=== PATIENT | male | born 1955 | race Caucasian/White ===

== ENCOUNTER 2024-08-11 13:52 | Emergency (ER) | payer MEDICARE, SELFPAY ==
[2024-08-11 13:54] VITALS: BP 147/92; PULSE 82; RESP 16; TEMP 36.7; O2SAT 98
[2024-08-11 13:59] VITALS: BP 147/92; PULSE 82; RESP 16; TEMP 36.7; O2SAT 98
--- NOTE | 2024-08-11 14:45 | RT.EKG_ITS ---
APPROVED REPORT Exam: Resting ECG Reason for Exam: abd pain Patient Location: E HR:62 bpm ECG Measurements Heart Rate 62 AXIS RI 162 P 75 QRSd 90 QRS 60 QT 385 T 54 QTc 392 Conclusion Sinus rhythm 62 normal axis no stemi
--- NOTE | 2024-08-11 14:58 | DI.CT_ITS ---
Exam(s) CT ABDOMEN PELVIS W EXAM: CT ABDOMEN PELVIS W CLINICAL HISTORY: abd pain TECHNIQUE: Imaging Protocol: Axial computed tomography images with coronal and sagittal reformatted images were created and reviewed. CONTRAST MATERIAL: Intravenous: Omnipaque 350 Contrast volume:75 mL Oral: No COMPARISON: No exams were available for comparison FINDINGS: ABDOMEN: Lung Bases: Coronary artery calcifications are present. Liver: Normal density. No measurable mass. Portal, Superior Mesenteric, and Splenic Veins: Unremarkable. Gallbladder and Biliary Tract: No radiodense calculus or dilation. Pancreas: Normal density, no abnormal calcifications or inflammatory process. Spleen: Normal. Adrenals: No masses seen. Kidneys: Normal size, contour and axis. No radiodense stones or obstructive uropathy. No masses seen. Abdominal Aorta: Abdominal portion non-dilated. Atherosclerotic calcification is present. Bowel: There are diverticula seen in the sigmoid colon. There is moderate wall thickening seen beginning in the distal transverse colon and extending to the proximal sigmoid colon. Pericolonic inflammation is seen. There are few scattered diverticuli within the inflamed bowel. Acute diverticulitis versus infectious/inflammatory colitis. There is no evidence of bowel obstruction. There is a large amount of stool in the proximal colon. Appendix is unremarkable. Peritoneal Cavity: There is a small amount of fluid in the left pericolic gutter. No focal fluid collection is seen to suggest an abscess. No free air. Lymph Nodes: Within normal limits. Bones: Within normal limits for the patient's age. The patient has a left total hip arthroplasty. Soft Tissues: There is a fluid collection adjacent to the greater trochanter of the left femur. It measures 5.9 cm transverse by 1.7 cm AP x 13.5 cm craniocaudad. (Series 8, image 104 and series 4, image 39). There is a thin enhancing wall. There is mild infiltration of the surrounding soft tissues. PELVIS: Bladder: Symmetric distention, no gross wall thickening. Reproductive Organs: Unremarkable as visualized. Lymph Nodes: Within normal limits. Bones: Within normal limits for the patient's age. IMPRESSION: 1. Moderate wall thickening from the distal transverse colon through the proximal sigmoid colon. There are associated diverticula and this may represent acute diverticulitis, however an infectious or inflammatory colitis should also be considered. Mild pericolonic inflammation and a small amount of free fluid is seen in the left pericolic gutter. 2. 5.9 x 1.7 x 13.5 cm focal fluid collection adjacent to the right greater trochanter. There is a thin enhancing wall and mild infiltration of the surrounding soft tissues. Abscess versus bursitis. RADIATION DOSE DELIVERED: 386.29mGy.cm Total DLP DATA REPOSITORY: All CT scans at this facility are submitted to the National Radiology Data Registry (NRDR) Dose Index Registry (DIR) with the [employer] ([employer]). RADIATION OPTIMIZATION: All CT scans at this facility use at least one of these dose optimization techniques: automated exposure control; mA and/or kV adjustment per patient size (includes targeted exams where dose is matched to clinical indication); or iterative reconstruction.
[2024-08-11 15:08] LABS: Abs Immature Grans 0.03 10^3/uL (0.0-0.06); Absolute Basophil Count 0.03 10^3/uL (0.0-0.2); Absolute Eosinophil Count 0.04 10^3/uL (0.0-0.7); Absolute Lymphocyte Count 0.82 10^3/uL (1.2-3.4); Absolute Monocyte Count 0.68 10^3/uL (0.1-0.8); Absolute Neutrophil Count 8.91 10^3/uL (1.2-6.7); Basophils % 0.3 %; Eosinophils % 0.4 %; HCT 44.7 % (40.0-50.0); HGB 14.8 g/dL (13.5-17.5); Immature Grans % 0.3 %; Lymphocytes % 7.8 %; MCH 31.4 pg (27.0-33.0); MCHC 33.1 % (32.0-36.0); MCV 95 fL (80-95); MPV 9.4 fL (8.0-11.0); Monocytes % 6.5 %; Neutrophils % 84.7 %; Platelet Count 252 10^3/uL (130-400); RBC 4.71 10^6/uL (4.36-5.78); RDW 13.2 % (11.8-14.1); RDW-SD 46.2 fL; WBC 10.51 10^3/uL (4.4-10.8)
[2024-08-11] MEDS: Ondansetron 4 MG/2 ML VIAL IVP (15:21)
[2024-08-11] MEDS: Normal Saline 1,000 ML 1000 ML IV (15:22)
[2024-08-11 15:24] LABS: ALT 31 U/L (16-63); AST 19 U/L (15-37); Alkaline Phosphatase 79 U/L (46-116); Anion Gap 9.1 mmol/L (3-11); BUN 24 mg/dL (7-18); Bilirubin, Total 0.6 mg/dL (0.2-1.0); CO2 27.9 mmol/L (21.0-32.0); CREATININE 1.2 mg/dL (0.70-1.30); Calcium 9.5 mg/dL (8.5-10.1); Chloride 102 mmol/L (98-107); Estimated GFR 64.65 (mL/min/1.73m2); Glucose 115 mg/dL (74-106); Lipase 26 U/L (<78); Magnesium 1.9 mg/dL (1.8-2.4); Potassium 4.2 mmol/L (3.5-5.1); Sodium 139 mmol/L (136-145); Total Protein 7.5 g/dL (6.4-8.2)
[2024-08-11 15:52] VITALS: BP 138/88; PULSE 68; RESP 18; O2SAT 99
[2024-08-11] MEDS: Omnipaque 350 MG/ML 100 ML BTL 75 ML IJ (16:11)
[2024-08-11] MEDS: Normal Saline - Diluent 50 ML VIAL IJ (16:11)
[2024-08-11 17:22] VITALS: BP 143/93; PULSE 66; RESP 16; O2SAT 97
--- NOTE | 2024-08-11 18:26 | ED.GENADUL_ITS ---
Discharge Plan Disposition Patient Disposition: Home Condition: Stable Discharge Details Clinical Impression: Colitis, Abdominal pain, Diarrhea Primary Care Provider: Andrei Israel ED Provider: Donna Garcia Home Meds and New Rx's Prescriptions: New amoxicillin-pot clavulanate 875-125 mg tablet 1 tab PO BID 7 Days Qty: 14 0RF ondansetron 4 mg tablet,disintegrating 4 mg PO Q6H PRN (Reason: nausea and vomiting) Qty: 30 0RF No Action lisinopril 20 mg tablet 20 mg PO DAILY bupropion HCl 300 mg tablet extended release 24 hr 300 mg PO DAILY Discharge Instructions Instructions: Colitis (DC) Additional Instructions: * Start the antibiotic as prescribed. * Start the nausea medication as needed * adhere to Clear liquid diet For the next week and advance slowly as you tolerate * return to the emergency department with fever, severe pain, not tolerating medication or if you feel like your symptoms are worsening * please follow up with general surgery in 6-8 weeks for colonoscopy after symptoms have resolved Discharge Data Discharge Date/Time-TO BE ENTERED AT DEPARTURE: 08/11/24 17:22 HPI General Date/Time Provider Initiated Documentation: 08/11/24 14:32 . Limitations to Documentation: no limitations . Information obtained by: patient . HPI Narrative: 69-year-old gentleman with significant past medical history presents for evaluation of of generalized abdominal pain and diarrhea. symptoms started last night. feels like it might be related to food he ate. diarrhea is pink, but says that it looks like the fruits he was eating. reports nausea, no vomiting or fever. reports he had diverticulosis on last colonoscopy. no sick contacts. Related Data Home Medications ?Medication ?Instructions ?Recorded ?Confirmed amoxicillin 875 mg-potassium 1 tab PO BID 7 days #14 t abs 08/11/24 clavulanate 125 mg tablet bupropion HCl 300 mg 24 hr tablet, 300 mg PO DAILY 08/11/24 extended release lisinopril 20 mg tablet 20 mg PO DAILY 08/11/2407/18 ondansetron 4 mg disintegrating 4 mg PO Q6H PRN nausea and 08/11/24 tablet vomiting #30 tabs Previous Rx's ?Medication ?Instructions ?Recorded amoxicillin 875 mg-potassium 1 tab PO BID 7 days #14 t abs 08/11/24 clavulanate 125 mg tablet ondansetron 4 mg disintegrating 4 mg PO Q6H PRN nausea and 08/11/24 tablet vomiting #30 tabs Allergies Allergy/AdvReac Type Severity Reaction Status Date / Time beesting Allergy Severe Anaphylaxsi Uncoded 08/11/24 13:59 s shellfish Allergy Unknown Hives Uncoded 08/11/24 13:59 General Stated Complaint: Abd Prob JESIKA: 3 Exam Narrative Exam Narrative: Review of Systems: All systems reviewed & are unremarkable except as noted in HPI and below Well-developed, no acute distress NCAT PERRL, normal conjunctiva RRR, no murmur Unlabored respiratory effort, CTAB Nondistended abdomen , mild lower tenderness no focal gaurding No rashes or lesions. no focal neurologic deficits Course Vital Signs Vital signs: Vital Signs Temperature 36.7 C 08/11/24 13:54 Pulse 82 08/11/24 13:54 Respiratory Rate 16 08/11/24 13:54 Blood Pressure 147/92 H 08/11/24 13:54 Pulse Oximetry 98 08/11/24 13:54 Temperature 36.7 C 08/11/24 13:59 Pulse 66 08/11/24 17:22 Respiratory Rate 16 08/11/24 17:22 Blood Pressure 143/93 H 08/11/24 17:22 Blood Pressure Mean 104 08/11/24 15:52 Pulse Oximetry 97 08/11/24 17:22 Oxygen Delivery Method Room Air 08/11/24 15:52 Oxygen Flow Rate 0 08/11/24 15:52 Pain Level 5 08/11/24 13:59 Lab/Test Results Lab/Test Results: Laboratory Tests Range/Units 08/11/24 14:53 WBC (4.4-10.8) 10^3/uL 10.51 RBC (4.36-5.78) 10^6/uL 4.71 Hgb (13.5-17.5) g/dL 14.8 Hct (40.0-50.0) % 44.7 MCV (80-95) fL 95 MCH (27.0-33.0) pg 31.4 MCHC (32.0-36.0) % 33.1 RDW (11.8-14.1) % 13.2 Plt Count (130-400) 10^3/uL 252 MPV (8.0-11.0) fL 9.4 Immature Gran % % 0.3 Neutrophils % % 84.7 Lymphocytes % % 7.8 Monocytes % % 6.5 Eosinophils % % 0.4 Basophils % % 0.3 Nucleated RBC % (0.0-0.3) % 0.0 Absolute Neutrophils (1.2-6.7) 10^3/uL 8.91 H Absolute Lymphocytes (1.2-3.4) 10^3/uL 0.82 L Absolute Monocytes (0.1-0.8) 10^3/uL 0.68 Absolute Eosinophils (0.0-0.7) 10^3/uL 0.04 Absolute Basophils (0.0-0.2) 10^3/uL 0.03 Sodium (136-145) mmol/L 139 Potassium (3.5-5.1) mmol/L 4.2 Chloride (98-107) mmol/L 102 Carbon Dioxide (21.0-32.0) mmol/L 27.9 Anion Gap (3-11) mmol/L 9.1 BUN (7-18) mg/dL 24 H Creatinine (0.70-1.30) mg/dL 1.2 Est GFR (CKD-EPI 2020) (mL/min/1.73m2) 64.65 Glucose (74-106) mg/dL 115 H Calcium (8.5-10.1) mg/dL 9.5 Magnesium (1.8-2.4) mg/dL 1.9 Total Bilirubin (0.2-1.0) mg/dL 0.6 AST (15-37) U/L 19 ALT (16-63) U/L 31 Alkaline Phosphatase (46-116) U/L 79 Total Protein (6.4-8.2) g/dL 7.5 Albumin (3.4-5.0) g/dL 4.0 Lipase (<78) U/L 26 Medical Decision Making emergent evaluation of abdominal pain and diarrhea . Patient is hemodynamically stable. Possible bright red blood in the stool which could be food color related. Does have history of diverticulosis. Initial differential includes colitis, diverticulitis, foodborne illness. Plan for labs, fluid resuscitation, antiemetic and CT imaging lab work reviewed, no significant leukocytosis or anemia. Do not suspect Significant GI bleeding. Creatinine within normal limits, no dysfunction of the LFTs. His lipase is normal. CT imaging does demonstrate colitis. At this time. Remains afebrile. do not feel that patient warrants IV antibiotics administration admission to the hospital. Will start on oral Augmentin, provided Zofran to take as needed and recommend close follow-up with PCP as well as repeat colonoscopy after symptoms resolved. Patient was advised strict return precautions. PFSH All Active Problems (Updated 08/11/24 @ 17:10 by Donna Garcia MD) Diarrhea (Acute) Abdominal pain (Acute) Colitis (Acute) Social History Smoking/Tobacco Use Status: Former Tobacco Use Smoking risk assessment performed?: Yes Alcohol Intake: never Drug use: Never Substance use type: does not use Do you feel safe at home: Yes Do you feel safe in your relationship?: Yes
== END 2024-08-11 17:22 | disposition home or self-care (01) ==
PROVIDERS: Emergency Provider Emergency Medicine; PCP Internal Medicine
DX: K52.9 Noninfective gastroenteritis and colitis, unspecified (principal); R10.30 Lower abdominal pain, unspecified; R11.0 Nausea
CPT/HCPCS: 99284; 99285; 96374; 36415; 80053; 83690; 93005; 96361; 74177; 83735; 85025; 93010; J2405; J3490